=== PATIENT | female | born 1975 | race Caucasian/White ===

== ENCOUNTER 2017-11-30 15:09 | Emergency (ER) | payer MEDICAID ==
[2017-11-30] MEDS: HYDROCODONE/APAP (5/325) TAB PO (15:33)
[2017-11-30] MEDS: LIDOCAINE 1% (MDV) 10 ML INJ INJ (15:35)
[2017-11-30] MEDS: LIDOCAINE 1% (MDV) 20 ML INJ INJ (15:35)
== END 2017-11-30 16:50 | disposition home or self-care (01) ==
LOC: FTE 15:09
DX: S92.422A Displaced fracture of distal phalanx of left great toe, initial encounter for closed fracture (principal); S91.202A Unspecified open wound of left great toe with damage to nail, initial encounter; S90.212A Contusion of left great toe with damage to nail, initial encounter; W20.8XXA Other cause of strike by thrown, projected or falling object, initial encounter; Y92.9 Unspecified place or not applicable
CPT/HCPCS: 73660; 99283-25

== ENCOUNTER 2018-11-17 11:23 | Emergency (ER) | payer OTHER ==
[2018-11-17] MEDS: ALPRAZOLAM 0.25 MG TAB PO (14:18)
== END 2018-11-17 15:46 | disposition home or self-care (01) ==
LOC: FTE 15:46
DX: R20.2 Paresthesia of skin (principal); E11.9 Type 2 diabetes mellitus without complications
CPT/HCPCS: 80048; 81025; 85025; 93005; 99284-25